=== PATIENT | female | born 1980 | race Caucasian/White ===

== ENCOUNTER 2017-04-30 09:55 | Inpatient (IN) | payer MEDICAID, OTHER ==
[2017-04-30] MEDS ORDERED: Sodium Chloride 0.9% 1,000 ML IV ONE (10:19)
--- NOTE | 2017-04-30 10:19 | C.PDOC ---
History Of Present Illness Patient is a 36 year old female, with past medical history of anemia and asthma , presents to Emergency Department for evaluation of sudden onset of right lower quadrant abdominal pain associated with nausea, vomiting, diarrhea, and fever for the last 2 days. Patient states that pain is sharp and constant in nature, and is worse when walking. Notes she tried taking Tylenol and Pepto- Bismol but vomited immediately after. Otherwise, denies dysuria, hematuria, or back pain. Time Seen by Provider: 04/30/17 10:14 Chief Complaint (Nursing): Abdominal Pain History Per: Patient History/Exam Limitations: no limitations Onset/Duration Of Symptoms: Days (2), Persistent Current Symptoms Are (Timing): Still Present Location Of Pain/Discomfort: RLQ Radiation Of Pain To:: None Quality Of Discomfort: Sharp Associated Symptoms: Fever, Nausea, Vomiting, Diarrhea. denies: Back Pain, Constipation, Urinary Symptoms Exacerbating Factors: Walking Alleviating Factors: None Additional History Per: Patient Abnormal Vaginal Bleeding: No Last Menstral Period: 04/03/17 Past Medical History Reviewed: Historical Data, Nursing Documentation, Vital Signs Vital Signs: Last Vital Signs Temp 97.5 F L 04/30/17 16:25 Pulse 53 L 04/30/17 17:45 Resp 14 04/30/17 17:45 BP 129/74 04/30/17 17:00 Pulse Ox 99 04/30/17 17:45 - Medical History PMH: Anemia, Asthma Family History: States: Unknown Family Hx - Social History Hx Tobacco Use: No Hx Alcohol Use: No Hx Substance Use: No - Immunization History Hx Tetanus Toxoid Vaccination: No Hx Influenza Vaccination: No Hx Pneumococcal Vaccination: No Review Of Systems Except As Marked, All Systems Reviewed And Found Negative. Constitutional: Positive for: Fever Cardiovascular: Negative for: Chest Pain Respiratory: Negative for: Shortness of Breath Gastrointestinal: Positive for: Nausea, Vomiting, Abdominal Pain, Diarrhea. Negative for: Constipation, Melena, Hematochezia, Hematemesis Genitourinary: Negative for: Dysuria, Frequency, Hematuria, Vaginal Discharge Musculoskeletal: Negative for: Back Pain Physical Exam - Physical Exam Appears: Non-toxic, No Acute Distress Skin: Normal Color, Warm, Dry Head: Atraumatic, Normacephalic Eye(s): bilateral: Normal Inspection Oral Mucosa: Moist Neck: Normal ROM, Supple Chest: Symmetrical Cardiovascular: Rhythm Regular, No Murmur Respiratory: Normal Breath Sounds, No Rales, No Rhonchi, No Wheezing Gastrointestinal/Abdominal: Bowel Sounds (normal), Soft, Tenderness (RLQ), No Distention, No Guarding, No Rebound Back: No CVA Tenderness Extremity: Normal ROM, No Pedal Edema Neurological/Psych: Oriented x3, Normal Speech ED Course And Treatment - Laboratory Results Result Diagrams: 04/30/17 10:50 04/30/17 10:50 Lab Interpretation: Abnormal O2 Sat by Pulse Oximetry: 99 (RA) Pulse Ox Interpretation: Normal - CT Scan/US Abd & Pelvis CT Other Rad Studies (CT/US): Read By Radiologist, Radiology Report Reviewed CT/US Interpretation: Accession No. : [id number]. Patient Name / ID : NATHEN FRITZ / [id number]. Exam Date : 04/30/2017 12:04:28 ( Approved ). Study Comment : Sex / Age : F / 36Y. Creator : Annmarie Gregorio MD. Dictator : Annmarie Gregorio MD. Data Conversion Operator : Home Health Aide Caregiver : Annmarie Gregorio MD. Approver2 : Report Date : 04/30/2017 12:33:33. My Comment : . PROCEDURE: CT Abdomen and Pelvis with contrast. HISTORY: RLQ abd pain. COMPARISON: None available. TECHNIQUE: Contrast dose: 100 mL Visipaque. Radiation dose: Total exam DLP = 933.17 mGy-cm. This CT exam was performed using one or more of the following dose reduction techniques: Automated exposure control, adjustment of the mA and/or kV according to patient size, and/or use of iterative reconstruction technique. FINDINGS: LOWER THORAX: Mild bibasilar atelectasis. No visible pleural effusion or pneumothorax. LIVER: Hypoattenuation of the liver compatible with hepatic steatosis. GALLBLADDER AND BILE DUCTS: Unremarkable. PANCREAS: Unremarkable. SPLEEN: Unremarkable. ADRENALS: Unremarkable. KIDNEYS AND URETERS: The kidneys enhance symmetrically. No hydronephrosis or obstructing calculus identified. VASCULATURE: No aortic aneurysm. BOWEL: Stomach is nondistended. Lack of oral contrast limits evaluation for bowel pathology. Bowel loops appear within normal limits of caliber without evidence of obstruction. APPENDIX: The appendix is dilated measuring approximately 13 mm and contains fluid and associated inflammatory stranding. Appearance compatible with acute appendicitis. PERITONEUM: Small pelvic free fluid. No definite free air. LYMPH NODES: No bulky adenopathy identified. BLADDER: Unremarkable. REPRODUCTIVE: The uterus is present. Probable left adnexal/ovarian cysts. BONES: No acute osseous abnormality is detected. OTHER FINDINGS: 3 mm fat containing umbilical hernia. IMPRESSION: The appendix is dilated measuring approximately 13 mm and contains fluid and associated inflammatory stranding. Appearance compatible with acute appendicitis. Probable left adnexal/ovarian cysts. Small pelvic free fluid. Hepatic steatosis. Mild bibasilar atelectasis. Additional findings as above. Findings discussed with Dr. Richards on 04/30/2017 at 12:29 pm. Medical Decision Making Medical Decision Making: Impression: RLQ abdominal pain, r.o appendicitis Plan: * Blood work * Urinalysis * Abd & Pelvis CT * Toradol * Zofran * IV fluids * Reassess and dispo Progress note: Labs reviewed showing leukocytosis. Zosyn IV ordered. 1230 Radiologist calls with critical finding, the CT shows appendicitis Patient reevaluated and reports pain mildly improved, abdomen lens fabricating machine tender. Inform patient of acute findings and will call surgery 1254: Spoke with Dr Rodríguez and discussed findings including CT positive for acute appendicitis and WBC>15. He wants patient admitted to his service. Disposition - Disposition Disposition: HOSPITALIZED Disposition Time: 12:55 Condition: STABLE - POA Present On Arrival: None - Clinical Impression Clinical Impression: Acute appendicitis - PA / OTR [employer] / Resident Statement MD/DO has reviewed & agrees with the documentation as recorded. - Scribe Statement The provider has reviewed the documentation as recorded by the Katy Valle All medical record entries made by the Eloisaibgloria were at my direction and personally dictated by me. I have reviewed the chart and agree that the record accurately reflects my personal performance of the history, physical exam, medical decision making, and the department course for this patient. I have also personally directed, reviewed, and agree with the discharge instructions and disposition. Decision To Admit - Pt Status Changed To: Hospital Disposition Of: Inpatient - Admit Certification Admit to Inpatient:: After my assessment, the patient will require hospitalization for at least two midnights. This is because of the severity of symptoms shown, intensity of services needed, and/or the medical risk in this patient being treated as an outpatient. - InPatient: Physician Admission Certification:: Patient has acute appendicitis and will require admission and surgical intervention - . Bed Request Type: Regular Admitting Physician: Dionicio Rodríguez Patient Diagnosis: Acute appendicitis
[2017-04-30] MEDS ORDERED: Sodium Chloride 0.9% 1,000 ML ONE (10:30)
[2017-04-30 10:57] LABS: BASO % 0.3 % (0.0-2.0); HEMATOCRIT 33.3 % (34.0-47.0); LYMPH # 2.2 K/uL (1.0-4.3); LYMPH % 14.7 % (20.0-40.0); MEAN CELL VOLUME 64.4 fL (81.0-99.0); MEAN CORPUSCULAR HEMOGLOBIN 19.8 pg (27.0-31.0); MEAN CORPUSCULAR HGB CONC 30.8 g/dL (33.0-37.0); MEAN PLATELET VOLUME 7.8 fL (7.2-11.7); MONO % 6.6 % (0.0-10.0); NRBC % 0.1 % (0.0-2.0); RED CELL DISTRIBUTION WIDTH 18.5 % (11.5-14.5)
[2017-04-30] MEDS ORDERED: Piperacillin/Tazobact 3.375 gm 100 ML IV STA (11:01)
[2017-04-30 11:02] LABS: CHLORIDE 100 mmol/L (98-107); POTASSIUM 3.5 mmol/L (3.6-5.2); SODIUM 136 mmol/L (132-148)
[2017-04-30 11:04] LABS: GFR AFRICAN-AMERICAN > 60
[2017-04-30 11:05] LABS: ALB/GLOB RATIO 0.9 (1.0-2.1); ALKALINE PHOSPHATASE 89 U/L (38-126); ALT/SGPT 24 U/L (9-52); AST/SGOT 16 U/L (14-36); BILIRUBIN,TOTAL 0.6 mg/dL (0.2-1.3); BLOOD UREA NITROGEN 10 mg/dL (7-17); CALCIUM 9.4 mg/dl (8.6-10.4); CARBON DIOXIDE 22 mmol/L (22-30); GLUCOSE,RANDOM 111 mg/dL (65-105); TOTAL PROTEIN 9.5 g/dL (6.3-8.3)
[2017-04-30 11:21] LABS: URINE COLOR YELLOW (YELLOW)
[2017-04-30 11:22] LABS: URINE BILIRUBIN NEGATIVE (NEGATIVE); URINE BLOOD TRACE-INTACT (NEGATIVE); URINE GLUCOSE (UA) Normal (Normal); URINE KETONE NEGATIVE (NEGATIVE); URINE PROTEIN TRACE mg/dL (NEGATIVE); URINE UROBILINOGEN 0.2 mg/dL (0.2-1.0)
[2017-04-30 11:23] LABS: RBC URINE 1 /hpf (0-3); URINE BACTERIA RARE (<OCC)
[2017-04-30 11:24] LABS: WBC URINE 2 /hpf (0-5)
[2017-04-30] MEDS ORDERED: Piperacill/Tazo 3.375gm in Dex 3.375 GM/50 ML BAG IVPB STA (11:32)
[2017-04-30 12:04] LABS: URINE LEUKOCYTE ESTERASE NEGATIVE Leu/uL (Negative)
[2017-04-30] MEDS ORDERED: Iodixanol 320 mg/ml 150 ml Bottle IV ONE (12:14)
--- NOTE | 2017-04-30 12:35 | CT ---
PROCEDURE: CT Abdomen and Pelvis with contrast HISTORY: RLQ abd pain COMPARISON: None available TECHNIQUE: Contrast dose: 100 mL Visipaque Radiation dose: Total exam DLP = 933.17 mGy-cm. This CT exam was performed using one or more of the following dose reduction techniques: Automated exposure control, adjustment of the mA and/or kV according to patient size, and/or use of iterative reconstruction technique. FINDINGS: LOWER THORAX: Mild bibasilar atelectasis. No visible pleural effusion or pneumothorax. LIVER: Hypoattenuation of the liver compatible with hepatic steatosis. GALLBLADDER AND BILE DUCTS: Unremarkable. PANCREAS: Unremarkable. SPLEEN: Unremarkable. ADRENALS: Unremarkable. KIDNEYS AND URETERS: The kidneys enhance symmetrically. No hydronephrosis or obstructing calculus identified. VASCULATURE: No aortic aneurysm. BOWEL: Stomach is nondistended. Lack of oral contrast limits evaluation for bowel pathology. Bowel loops appear within normal limits of caliber without evidence of obstruction. APPENDIX: The appendix is dilated measuring approximately 13 mm and contains fluid and associated inflammatory stranding. Appearance compatible with acute appendicitis. PERITONEUM: Small pelvic free fluid. No definite free air. LYMPH NODES: No bulky adenopathy identified. BLADDER: Unremarkable. REPRODUCTIVE: The uterus is present. Probable left adnexal/ovarian cysts. BONES: No acute osseous abnormality is detected. OTHER FINDINGS: 3 mm fat containing umbilical hernia. IMPRESSION: The appendix is dilated measuring approximately 13 mm and contains fluid and associated inflammatory stranding. Appearance compatible with acute appendicitis. Probable left adnexal/ovarian cysts. Small pelvic free fluid. Hepatic steatosis. Mild bibasilar atelectasis. Additional findings as above. Findings discussed with Dr. Richards on 04/30/2017 at 12:29 pm.
[2017-04-30] MEDS ORDERED: Bupivacaine HCl 0.25% PF (10 ml) Inj ONE (14:03)
[2017-04-30] MEDS ORDERED: ceFAZolin IV 1 gm in Dextrose 0 GM/0 ML BAG IVPB ONE (14:03)
[2017-04-30] MEDS ORDERED: Midazolam 2 MG/2 ML VIAL ONE (14:55)
[2017-04-30] MEDS ORDERED: Propofol 10 mg/ml Inj (20 ML) ONE (14:56)
[2017-04-30] MEDS ORDERED: Lactated Ringer's 1,000 ML IV ONE ×2 (14:58→16:25)
[2017-04-30] MEDS ORDERED: Succinylcholine Chloride 20 mg/ml Syr (5 ml) IV ONE (15:57)
[2017-04-30] MEDS ORDERED: Rocuronium 10 mg/ml (5 ml) ONE (15:57)
[2017-04-30] MEDS ORDERED: Oxycodone/Acetaminophen 5/325 mg Tab PO PRN (16:14)
[2017-04-30] MEDS ORDERED: Piperacillin/Tazobact 3.375 GM in Sodium Chloride 100 ML IVPB SCH (16:30)
[2017-04-30] MEDS: HYDROmorphone 0.5 mg/0.5 ml ISec IVP PRN ×2 (17:05→17:39)
[2017-04-30] MEDS: Piperacill/Tazo 3.375gm in Dex 3.375 GM/50 ML BAG IVPB SCH ×3 (18:35→23:50)
[2017-04-30] MEDS: Dextrose 5%/0.45% NS 1,000 ML IV SCH (19:23)
[2017-04-30 21:05] VITALS: RESP 20
[2017-05-01] MEDS: Dextrose 5%/0.45% NS 1,000 ML IV SCH ×4 (04:45→23:52)
[2017-05-01] MEDS: Piperacill/Tazo 3.375gm in Dex 3.375 GM/50 ML BAG IVPB SCH ×3 (05:26→17:11)
[2017-05-01 07:25] LABS: BASO % 0.4 % (0.0-2.0); EOS % 0.2 % (0.0-4.0); HEMATOCRIT 26.7 % (34.0-47.0); LYMPH # 1.8 K/uL (1.0-4.3); LYMPH % 15.6 % (20.0-40.0); MEAN CELL VOLUME 65.1 fL (81.0-99.0); MEAN CORPUSCULAR HEMOGLOBIN 20.1 pg (27.0-31.0); MEAN CORPUSCULAR HGB CONC 30.8 g/dL (33.0-37.0); MEAN PLATELET VOLUME 7.7 fL (7.2-11.7); MONO # 0.9 K/uL (0.0-0.8); MONO % 8.3 % (0.0-10.0); RED CELL DISTRIBUTION WIDTH 18.7 % (11.5-14.5); WHITE BLOOD COUNT 11.3 K/uL (4.8-10.8)
[2017-05-01 08:01] LABS: CHLORIDE 101 mmol/L (98-107); POTASSIUM 3.6 mmol/L (3.6-5.2); SODIUM 133 mmol/L (132-148)
[2017-05-01 08:03] LABS: GFR AFRICAN-AMERICAN > 60
[2017-05-01 08:04] LABS: BLOOD UREA NITROGEN 9 mg/dL (7-17); CARBON DIOXIDE 23 mmol/L (22-30); GLUCOSE,RANDOM 94 mg/dL (65-105)
[2017-05-01 08:05] LABS: CALCIUM 8.1 mg/dl (8.6-10.4)
[2017-05-01] MEDS ORDERED: Pneumococcal 23-Valent Vaccine IM ONE (10:00)
--- NOTE | 2017-05-01 12:55 | OP ---
PROCEDURE DATE: 04/30/2017 PREOPERATIVE DIAGNOSIS: Acute appendicitis. POSTOPERATIVE DIAGNOSIS: Acute gangrenous appendicitis. PROCEDURE PERFORMED: Laparoscopic appendectomy. SURGEON: Dionicio Rodríguez MD TYPE OF ANESTHESIA: General. ESTIMATED BLOOD LOSS: 40 mL. POSTOPERATIVE CONDITION: Stable. INDICATIONS FOR SURGERY: This is a 36-year-old female with 2 days' history of right lower quadrant pain and presented to the ER today, found to have acute appendicitis on CAT scan, now taken to the operating room. GROSS FINDINGS: The appendix was acutely inflamed and possibly gangrenous. There was some inflammatory fluid in the pelvis, possibly pus, which was cultured. There were no other abnormal findings. DESCRIPTION OF PROCEDURE: The patient was taken to the operating room. General anesthesia was administered. The abdomen was prepped and draped. A paraumbilical cutdown incision was performed and one port was inserted into the abdomen. On the direct vision, the suprapubic and left lower quadrant ports were placed. The patient was then put in Trendelenburg and the appendix was identified and mobilized. The mesoappendix divided using the LigaSure to the base of the appendix. The base of the appendix was divided using an Endo SHARYN stapler. The appendix was placed in a bag and removed through the left lower quadrant port site. The abdomen was irrigated with saline until clear. The small pelvic collection had been drained and cultured. The ports were removed. The facial defects were closed with heavy Vicryl and the skin was closed with subcuticular Monocryl. The patient tolerated the procedure well, returned to recovery room in stable condition. Dionicio Rodríguez MD
[2017-05-01] MEDS ORDERED: DiphenhydrAMINE 50 mg/ml Inj IVP ONE (14:00)
[2017-05-02] MEDS: Piperacill/Tazo 3.375gm in Dex 3.375 GM/50 ML BAG IVPB SCH ×3 (00:11→11:40)
[2017-05-02] MEDS: Dextrose 5%/0.45% NS 1,000 ML IV SCH (06:40)
[2017-05-02 08:31] VITALS: BP 99/60; PULSE 60; TEMP 98.3; O2SAT 95
[2017-05-02 11:57] LABS: HEMATOCRIT 27.5 % (34.0-47.0); MEAN CELL VOLUME 65.4 fL (81.0-99.0); MEAN CORPUSCULAR HGB CONC 30.6 g/dL (33.0-37.0); MEAN PLATELET VOLUME 7.5 fL (7.2-11.7); RED CELL DISTRIBUTION WIDTH 18.1 % (11.5-14.5); WHITE BLOOD COUNT 9.3 K/uL (4.8-10.8)
[2017-05-02 12:02] LABS: CHLORIDE 101 mmol/L (98-107); POTASSIUM 3.2 mmol/L (3.6-5.2); SODIUM 136 mmol/L (132-148)
[2017-05-02 12:04] LABS: GFR AFRICAN-AMERICAN > 60
[2017-05-02 12:05] LABS: BLOOD UREA NITROGEN 4 mg/dL (7-17); CALCIUM 8.1 mg/dl (8.6-10.4); CARBON DIOXIDE 26 mmol/L (22-30); GLUCOSE,RANDOM 99 mg/dL (65-105)
[2017-05-02] MEDS ORDERED: Potassium Chloride 20 mEq ER Tab PO ONE (13:00)
--- NOTE | 2017-05-02 14:50 | CP.PCM.PN ---
Subjective - Date & Time of Evaluation Date of Evaluation: 05/02/17 Time of Evaluation: 14:45 - Subjective Subjective: patient seen and examined at bedside. she denies abdominal pain, nausea and vomiting. patient state that she was able to eat her breakfast with no problem. patient denies any SOB and no sign of distress noted Objective - Vital Signs/Intake and Output Vital Signs (last 24 hours): Temp Pulse Resp BP Pulse Ox 98.3 F 60 20 99/60 L 95 05/02/17 08:27 05/02/17 08:27 05/02/17 08:27 05/02/17 08:27 05/02/17 08:27 Intake and Output: 05/02/17 05/02/17 06:59 18:59 Intake Total 2080 890 Balance 0 890 - Medications Medications: Current Medications Docusate Sodium (Colace) 100 mg PO BID [facility] Last Admin: 05/02/17 09:29 Dose: 100 mg Dextrose/Sodium Chloride (Dextrose 5%/0.45% Ns 1000 Ml) 1,000 mls @ 80 mls/hr IV .[id number] [facility] Last Admin: 05/02/17 06:40 Dose: Not Given Piperacillin Sod/Tazobactam Sod (Zosyn 3.375 Gm Iv Premix) 3.375 gm in 50 mls @ 100 mls/hr IVPB Q6 [facility] Last Admin: 05/02/17 11:40 Dose: 100 mls/hr Ketorolac Tromethamine (Toradol) 30 mg IVP Q6 PRN PRN Reason: pain 8-10 Stop: 05/05/17 16:19 Last Admin: 05/02/17 00:12 Dose: 30 mg Ondansetron HCl (Zofran Inj) 4 mg IVP Q8H [facility] Last Admin: 05/02/17 12:38 Dose: Not Given Oxycodone/Acetaminophen (Percocet 5/325 Mg Tab) 2 tab PO Q4H PRN PRN Reason: pain Stop: 05/03/17 16:15 Last Admin: 05/01/17 02:36 Dose: 2 tab Pantoprazole Sodium (Protonix Inj) 40 mg IVP DAILY [facility] Last Admin: 05/02/17 09:29 Dose: 40 mg - Labs Labs: 05/02/17 11:44 05/02/17 11:44 - Constitutional Appears: Well - Head Exam Head Exam: NORMOCEPHALIC - Respiratory Exam Respiratory Exam: Clear to Ausculation Bilateral - Cardiovascular Exam Cardiovascular Exam: REGULAR RHYTHM - GI/Abdominal Exam GI & Abdominal Exam: Normal Bowel Sounds - Neurological Exam Neurological Exam: Alert, Oriented x3 Assessment and Plan - Assessment and Plan (Free Text) Assessment: PATIENT WILL CONTINUE HER HOME MEDICATION ABX DURICEF FOR 7 DAYS AND PROTNIX FOR 7 DAYS FOLLOW UP WITH HER PRMARY ON 05/10/17 NO HEAVY LIFTING AND NO WORK FOR 2-4 WEEKS POST DISCHARGE UNTIL SHE SEE DR SAAVEDRA NO SHOW AND DO NOT REMOVE THE STRIPS BY HER SELF ALSO PATIENT WAS INSTRUCTED TO DR SAAVEDRA FOR ANY SIGN OF INFECTION SUCH REDNESS, PUS OR FEVER GREATER THAN 101 NOTED discussed discharge planning with patient WHO VERBALIZED UNDERSTANDING AND IN AGREEMENT
== END 2017-05-02 14:45 | disposition home or self-care (01) | DRG 343 ==
LOC: C.ER 09:55 → C.9E 12:55 → C.3T 19:38
PROVIDERS: ADMIT Surgery; ATTEND Surgery
PROC: 0DTJ4ZZ Resection of Appendix, Percutaneous Endoscopic Approach (ICD-10-PCS; principal; 2017-04-30 12:00)
DX: K35.80 Unspecified acute appendicitis (principal)

== ENCOUNTER 2017-06-19 13:40 | Emergency (ER) | payer MEDICAID, OTHER ==
--- NOTE | 2017-06-19 14:27 | C.PDOC ---
History Of Present Illness 36 year old female presents to the ED for evaluation of dizziness, nausea, headache. Patient reports that on Saturday morning when she woke up she suddenly felt dizzy, spinning sensation and nausea which worsens with movement, change in position of the head. Patient states the episodes are intermittent, feels like she is in a roller coaster states her vision is slightly off but is not double. Patient denies tinnitus, double vision, palpitations, CP, SOB. Time Seen by Provider: 06/19/17 14:07 Chief Complaint (Nursing): Dizziness/Lightheaded History Per: Patient History/Exam Limitations: no limitations Onset/Duration Of Symptoms: Days Current Symptoms Are (Timing): Gone Activity At Onset Of Symptoms: Lying Associated Symptoms Preceding Syncopal Episode: Lightheadedness Seizure Or Post-ictal Symptoms: None Fall Associated With With Symptoms: No Severity: Mild Recent travel outside of the [place]: No Additional History Per: Patient Past Medical History Reviewed: Historical Data, Nursing Documentation, Vital Signs Vital Signs: Last Vital Signs Temp 98.8 F 06/19/17 13:54 Pulse 69 06/19/17 13:54 Resp 20 06/19/17 13:54 BP 122/79 06/19/17 13:54 Pulse Ox 99 06/19/17 14:31 - Medical History PMH: Anemia, Asthma Surgical History: Appendectomy (04/30/17) - [facility] RESECTION OF APPENDIX, PERCUTANEOUS ENDOSCOPIC APPROACH (04/30/17) Family History: States: Unknown Family Hx - Social History Hx Tobacco Use: No Hx Alcohol Use: No Hx Substance Use: No - Immunization History Hx Tetanus Toxoid Vaccination: No Hx Influenza Vaccination: No Hx Pneumococcal Vaccination: No Review Of Systems Constitutional: Negative for: Fever, Chills Cardiovascular: Negative for: Chest Pain, Palpitations Respiratory: Negative for: Cough, Shortness of Breath Gastrointestinal: Positive for: Nausea. Negative for: Vomiting, Abdominal Pain Skin: Negative for: Rash Neurological: Positive for: Headache, Dizziness. Negative for: Weakness, Numbness Physical Exam - Physical Exam Appears: Non-toxic, No Acute Distress Skin: Normal Color, Warm, Dry Head: Atraumatic, Normacephalic Eye(s): bilateral: PERRL, Other (horizontal gaze) Nose: No Discharge, No Deformity Oral Mucosa: Moist Neck: Normal ROM, Supple Chest: Symmetrical Cardiovascular: Rhythm Regular, No Murmur Respiratory: Normal Breath Sounds, No Rales, No Rhonchi, No Wheezing Gastrointestinal/Abdominal: Soft, No Tenderness, No Distention, No Rebound Extremity: Normal ROM, No Pedal Edema, No Calf Tenderness, No Deformity, No Swelling Neurological/Psych: Oriented x3, Normal Speech, Normal Cognition, Normal Motor, Normal Sensation, Other (Dizziness worsens with head tilting) Gait: Steady ED Course And Treatment - Laboratory Results Result Diagrams: 06/19/17 14:27 06/19/17 14:27 Lab Interpretation: No Acute Changes Urine POC: Negative O2 Sat by Pulse Oximetry: 99 (On RA) Pulse Ox Interpretation: Normal Reevaluation Time: 16:15 Reassessment Condition: Improved (but dose still feel slightly dizzy. She is relatively comfortable and tolerating food in ED.) Medical Decision Making Medical Decision Making: Impression : dizziness Plan: * Blood work * Antivert 25 mg PO * Zofran 4 mg PO * UA Disposition Counseled Patient/Family Regarding: Studies Performed, Diagnosis, Need For Followup, Rx Given - Disposition Referrals: [facility] [Outside] Disposition: HOME/ ROUTINE Disposition Time: 16:19 Condition: STABLE Additional Instructions: Encourage plenty of fluids and rest. Prescriptions: Meclizine [Antivert] 25 mg PO TID PRN #30 tab PRN Reason: Dizziness Instructions: Vertigo (ED) Forms: [facility] ([place]er), Work Excuse - Clinical Impression Clinical Impression: Vertigo - Scribe Statement The provider has reviewed the documentation as recorded by the Scribe Dario Jean All medical record entries made by the Scribe were at my direction and personally dictated by me. I have reviewed the chart and agree that the record accurately reflects my personal performance of the history, physical exam, medical decision making, and the department course for this patient. I have also personally directed, reviewed, and agree with the discharge instructions and disposition.
[2017-06-19 14:32] LABS: BASO % 0.4 % (0.0-2.0); EOS # 0.1 K/uL (0.0-0.7); EOS % 0.8 % (0.0-4.0); HEMATOCRIT 32.8 % (34.0-47.0); LYMPH # 2.9 K/uL (1.0-4.3); LYMPH % 34.7 % (20.0-40.0); MEAN CELL VOLUME 65.2 fL (81.0-99.0); MEAN CORPUSCULAR HEMOGLOBIN 19.7 pg (27.0-31.0); MEAN CORPUSCULAR HGB CONC 30.2 g/dL (33.0-37.0); MEAN PLATELET VOLUME 6.9 fL (7.2-11.7); MONO # 0.7 K/uL (0.0-0.8); MONO % 8.5 % (0.0-10.0); NRBC % 0.1 % (0.0-2.0); RED CELL DISTRIBUTION WIDTH 18.1 % (11.5-14.5); WHITE BLOOD COUNT 8.4 K/uL (4.8-10.8)
[2017-06-19 15:02] LABS: ALB/GLOB RATIO 1.1 (1.0-2.1); ALKALINE PHOSPHATASE 85 U/L (38-126); ALT/SGPT 29 U/L (9-52); AST/SGOT 23 U/L (14-36); BILIRUBIN,TOTAL 0.5 mg/dL (0.2-1.3); BLOOD UREA NITROGEN 11 mg/dL (7-17); CALCIUM 8.4 mg/dl (8.6-10.4); CARBON DIOXIDE 28 mmol/L (22-30); CHLORIDE 102 mmol/L (98-107); GFR AFRICAN-AMERICAN > 60; GLUCOSE,RANDOM 88 mg/dL (65-105); POTASSIUM 3.8 mmol/L (3.6-5.2); SODIUM 138 mmol/L (132-148); TOTAL PROTEIN 8.2 g/dL (6.3-8.3)
[2017-06-19 16:30] VITALS: BP 101/67; PULSE 98; RESP 17; TEMP 98.2; O2SAT 100
== END 2017-06-19 16:30 | disposition home or self-care (01) ==
LOC: C.ER 13:40
DX: R42 Dizziness and giddiness (principal)